=== PATIENT | female | born 1950 | race African-American/Black ===

== ENCOUNTER → 2016-08-06 | Outpatient (CLI) | payer MEDICARE, OTHER | LOC: WI 07:54 | PROVIDERS: ATTEND Physician Assistant | DX: Z12.31 Encounter for screening mammogram for malignant neoplasm of breast (principal); M81.0 Age-related osteoporosis without current pathological fracture | CPT/HCPCS: 77080; G0202; 77067 ==

== ENCOUNTER → 2017-02-21 | Outpatient (CLI) | payer MEDICARE, OTHER ==
--- NOTE | 2017-02-21 08:55 | WOMENS IMAGING REPORT ---
EXAM DESCRIPTION: U/S ABDOMEN LIMITED COMPLETED DATE/TIME: 02/21/2017 7:43 am REASON FOR STUDY: EPIGASTRIC PAIN;R10.13 R10.13 EPIGASTRIC PAIN COMPARISON: None. TECHNIQUE: Dynamic and static grayscale images acquired of the right upper quadrant and recorded on PACS. Additional selected color Doppler and spectral images recorded. LIMITATIONS: Study limited due to acoustical interference from fat or from air in the bowel. FINDINGS: PANCREAS: Parts of the pancreas poorly seen secondary to acoustical interference from fat or from air in the bowel. LIVER: Echotexture is coarse with increased echogenicity consistent with fatty infiltration. No mass es. LIVER VASCULATURE: Normal directional flow of the main portal vein and hepatic veins. GALLBLADDER: Contracted. No stones. Normal wall thickness. No pericholecystic fluid. ULTRASOUND-DETECTED REYNOSO'S SIGN: Negative. INTRAHEPATIC DUCTS AND COMMON DUCT: CBD and intrahepatic ducts normal caliber. No filling defects. INFERIOR VENA CAVA: Normal flow. AORTA: No aneurysm. RIGHT KIDNEY: Normal size. Normal echogenicity. No solid or suspicious masses. No hydronephrosis. No calcifications. PERITONEAL CAVITY AND RIGHT PLEURAL SPACE: No ascites or effusions. OTHER: No other significant finding. IMPRESSION: FATTY LIVER. PANCREAS PARTIALLY OBSCURED. OTHERWISE NORMAL RIGHT UPPER QUADRANT ULTRASOU ND. TECHNICAL DOCUMENTATION: JOB ID: [id number] [employer]- All Rights Reserved
== END ==
LOC: WI 07:28
PROVIDERS: ATTEND Physician Assistant
DX: R10.13 Epigastric pain (principal)
CPT/HCPCS: 76705

== ENCOUNTER → 2017-08-08 | Outpatient (CLI) | payer MEDICARE, OTHER ==
--- NOTE | 2017-08-08 09:31 | WOMENS IMAGING REPORT ---
EXAM DESCRIPTION: 3D SCREENING MAMMO BILAT COMPLETED DATE/TIME: 08/08/2017 8:55 am REASON FOR STUDY: ROUTINE SCREENING;Z12.31 Z12.31 ENCNTR SCREEN MAMMOGRAM FOR MALIGNANT NEOPLASM OF RHIANNA COMPARISON: Multiple since 2013 TECHNIQUE: Standard craniocaudal and mediolateral oblique views of each breast recorded using digita l acquisition and breast tomosynthesis. LIMITATIONS: None. FINDINGS: RIGHT BREAST MASSES: No suspicious masses. CALCIFICATIONS: No new or suspicious calcifications. ARCHITECTURAL DISTORTION: None. DEVELOPING DENSITY: None. ASYMMETRY: None noted. OTHER: No other significant findings. LEFT BREAST MASSES: Question subcentimeter nodule in the left breast upper outer quadrant, 6 to 7 cm from the nip ple. This requires further evaluation with cone compression views in the CC and MLO orientations, le ft breast 90 mediolateral view and possible ultrasound. CALCIFICATIONS: No new or suspicious calcifications. ARCHITECTURAL DISTORTION: None. DEVELOPING DENSITY: None. ASYMMETRY: None noted. OTHER: No other significant findings. Read with the assistance of CAD. .[facility] - R2 Cenova Version 1.3 .[facility] Imaging - R2 Cenova Version 1.3 .[facility] - R2 Cenova Version 2.4 .[facility] [place]2 Cenova Version 2.4 .[facility] - R2 Corporate Compliance Manager Version 9.2 IMPRESSION: No mammographic/tomosynthesis evidence for malignancy right breast Question subcentimeter nodule left breast upper outer quadrant 6 to 7 cm from the nipple. This requi res further evaluation with cone compression views, 90 mediolateral view and ultrasound BREAST DENSITY: b. There are scattered areas of fibroglandular density. BIRAD: 0 Incomplete: Needs Additional Imaging Evaluation and/or prior Mammograms for Comparison. RECOMMENDATION: RECOMMENDED FOLLOW-UP: Additional left breast diagnostic mammograms and ultrasound The patient will be contacted for additional imaging. COMMENT: The patient has been notified of the results by letter per SA requirements. Additional no tification policies are in place for contacting patient with suspicious or incomplete findings. Quality ID #225: The [employer] recommends an annual screening mammogram for women aged 40 years or over. This facility utilizes a reminder system to ensure that all patients receive reminder letters, and/or direct phone calls for appointments. This includes reminders for routine scr eening mammograms, diagnostic mammograms, or other Breast Imaging Interventions when appropriate. Th is patient will be placed in the appropriate reminder system. The [employer] (ACR) has developed recommendations for screening MRI of the breast s in certain patient populations, to be used in conjunction with mammography. Breast MRI surveillanc e may be appropriate for women with more than 20% lifetime risk of developing breast cancer as deter mined by genetic testing, significant family history of the disease, or history of mantle radiation f or Hodgkins Disease. ACR Practice Guidelines 2008. DBT Technology DBT is a type of tomographic mammography. With conventional mammography, overlapping breast tissue ma y make lesions difficult to detect, even with good compression. DBT uses an x-ray tube that rotates a round the breast, taking images at different angles. These images are then combined to create thin sl ices of the breast that the radiologist can view as a 3D reconstruction. The Flythe[employer] unit can perform full-field digital mammograms (2D imaging); or DBT (3D imaging); or both, in a combination mode that quickly performs both the mammogram and the tomosynthesis scan while the breast is still compressed. PQRS 6045F: Fluoroscopic imaging is not utilized for breast tomosynthesis. TECHNICAL DOCUMENTATION: FINDING NUMBER: (1) ASSESSMENT: (1) JOB ID: [id number] [employer] All Rights Reserved Reading location - IP/workstation name: [email or web address]
== END ==
LOC: WI 08:31
PROVIDERS: ATTEND Physician Assistant
DX: Z12.31 Encounter for screening mammogram for malignant neoplasm of breast (principal); R92.2 Inconclusive mammogram
CPT/HCPCS: 77063; 77067

== ENCOUNTER → 2017-08-20 | Outpatient (CLI) | payer MEDICARE, OTHER ==
--- NOTE | 2017-08-22 07:57 | WOMENS IMAGING REPORT ---
EXAM DESCRIPTION: LEFT DIAGNOSTIC MAMMO W/CAD COMPLETED DATE/TIME: 08/20/2017 9:02 am REASON FOR STUDY: UNSPECIFIED LUMP; N63.21 N63.21 UNSPECIFIED LUMP IN THE LEFT BREAST, UPPER OUTER QUAD COMPARISON: Multiple since 2013 TECHNIQUE: Cone compression craniocaudal and mediolateral oblique images of the breast recorded with digital acquisition. Left whole breast 90 mediolateral view LIMITATIONS: None. FINDINGS: BREAST: Left MASSES: No suspicious masses. CALCIFICATIONS: No new or suspicious calcifications. ARCHITECTURAL DISTORTION: None. DEVELOPING DENSITY: None. ASYMMETRY: None noted. OTHER: No other significant findings. Read with the assistance of CAD. .[facility] - R2 Cenova Version 1.3 .[facility] - R2 Cenova Version 1.3 .[facility] - R2 Cenova Version 2.4 .[facility] [place] - R2 Cenova Version 2.4 .[facility] - R2 Temp Recruiter Version 9.2 IMPRESSION: No worrisome findings on today's diagnostic mammography. No persistent nodule. BREAST DENSITY: b. There are scattered areas of fibroglandular density. BIRAD: 1 Negative. RECOMMENDATION: RECOMMENDED FOLLOW UP: Please continue yearly bilateral screening mammography in Aug. Please consider bilateral screening tomosynthesis SPECIFIC INTERVENTION/IMAGING/CONSULTATION RECOMMENDED:No additional intervention/ imaging/consultati on needed at this time. COMMUNICATION:Patient notified by letter COMMENT: The patient has been notified of the results by letter per MQSA requirements. Additional no tification policies are in place for contacting patient with suspicious or incomplete findings. Quality ID #225: The [employer] recommends an annual screening mammogram for women aged 40 years or over. This facility utilizes a reminder system to ensure that all patients receive reminder letters, and/or direct phone calls for appointments. This includes reminders for routine scr eening mammograms, diagnostic mammograms, or other Breast Imaging Interventions when appropriate. Th is patient will be placed in the appropriate reminder system. The [employer] (ACR) has developed recommendations for screening MRI of the breast s in certain patient populations, to be used in conjunction with mammography. Breast MRI surveillanc e may be appropriate for women with more than 20% lifetime risk of developing breast cancer as deter mined by genetic testing, significant family history of the disease, or history of mantle radiation f or Hodgkins Disease. ACR Practice Guidelines 2008. TECHNICAL DOCUMENTATION: FINDING NUMBER: (1) ASSESSMENT: (1) JOB ID: [id number] [employer]- All Rights Reserved Reading location - IP/workstation name: [email or web address]
== END ==
LOC: WI 08:31
PROVIDERS: ATTEND Physician Assistant
DX: N63.21 Unspecified lump in the left breast, upper outer quadrant (principal)

== ENCOUNTER → 2018-08-31 | Outpatient (CLI) | payer MEDICARE, OTHER ==
--- NOTE | 2018-08-31 12:11 | WOMENS IMAGING REPORT ---
EXAM DESCRIPTION: 3D SCREENING MAMMO BILAT COMPLETED DATE/TIME: 08/31/2018 7:28 am REASON FOR STUDY: Z12.31 ROUTINE 3D BILATERAL SCREENING Z12.31 ENCNTR SCREEN MAMMOGRAM FOR MALIGNAN T NEOPLASM OF RHIANNA COMPARISON: 08/06/2016 and 06/27/2015. EXAM PARAMETERS: Views: Standard craniocaudal and mediolateral oblique views of each breast recorded using digital acquisition and breast tomosynthesis. Read with the assistance of CAD. .[facility] - [employer] Supervisor Propellant Charge Loading Version 9.2 LIMITATIONS: None. FINDINGS: No suspicious masses, suspicious calcifications or architectural distortion. No areas of c oncern. IMPRESSION: NEGATIVE MAMMOGRAM. BIRADS 1. BREAST DENSITY: b. There are scattered areas of fibroglandular density. BIRAD: ASSESSMENT: 1 NEGATIVE RECOMMENDATION: ROUTINE SCREENING COMMENT: The patient has been notified of the results by letter per MQSA requirements. Additional no tification policies are in place for contacting patient with suspicious or incomplete findings. Quality ID #225: The [employer] recommends an annual screening mammogram for women aged 40 years or over. This facility utilizes a reminder system to ensure that all patients receive reminder letters, and/or direct phone calls for appointments. This includes reminders for routine scr eening mammograms, diagnostic mammograms, or other Breast Imaging Interventions when appropriate. Th is patient will be placed in the appropriate reminder system. TECHNICAL DOCUMENTATION: FINDING NUMBER: (1) ASSESSMENT: (1) JOB ID: [id number] [employer]- All Rights Reserved Reading location - IP/workstation name: [facility]
== END ==
LOC: WI 06:53
PROVIDERS: ATTEND Physician Assistant
DX: Z12.31 Encounter for screening mammogram for malignant neoplasm of breast (principal)
CPT/HCPCS: 77063; 77067

== ENCOUNTER → 2018-09-09 | Outpatient (CLI) | payer MEDICARE, OTHER ==
--- NOTE | 2018-09-09 14:46 | RADIOLOGY REPORT (SQ) ---
EXAM DESCRIPTION: HIP RIGHT AP/LATERAL COMPLETED DATE/TIME: 09/09/2018 12:01 pm REASON FOR STUDY: RT HIP PAIN M25.551 PAIN IN RIGHT HIP COMPARISON: CT abdomen pelvis 11/04/2013 KUB 10/26/2013 NUMBER OF VIEWS: Two views. TECHNIQUE: AP pelvis and additional frog-leg view of the right hip. LIMITATIONS: None. FINDINGS: MINERALIZATION: Normal. RIGHT HIP: No fracture or dislocation. No worrisome bone lesions. No significant right hip joint sp arlin narrowing or bony spurring LEFT HIP: No fracture or dislocation. No worrisome bone lesions. No significant left hip joint spac e narrowing or bony spurring PUBIS AND ISCHIUM: No fracture. PELVIS: No fracture. SACRUM: Mild bilateral SI joint sclerosis right greater than left LOWER LUMBAR SPINE: Lower lumbar facet arthropathy at L3-4, L4-5, L5-S1 SOFT TISSUES: Calcified uterine fibroid in the midline pelvis about 7 cm in diameter OTHER: No other significant finding. IMPRESSION: Bilateral SI joint sclerosis Lower lumbar facet arthropathy No significant right hip joint space narrowing. No right hip fracture TECHNICAL DOCUMENTATION: JOB ID: [id number]- All Rights Reserved Reading location - IP/workstation name: [email or web address]
== END ==
LOC: OD 11:46
PROVIDERS: ATTEND Family Medicine
DX: M25.551 Pain in right hip (principal); M12.88 Other specific arthropathies, not elsewhere classified, other specified site

== ENCOUNTER 2018-12-25 15:39 | Emergency (ER) | payer MEDICARE, OTHER ==
--- NOTE | 2018-12-25 16:50 | ER Document Report ---
ED Medical Screen (RME) - General Stated Complaint: FACIAL NUMBNESS, HEAD PAIN Time Seen by Provider: 12/25/18 16:38 Primary Care Provider: DMITRIY PERES PA [Primary Care Provider] - Follow up as needed Mode of Arrival: Ambulatory Information source: Patient Notes: 68-year-old female presents to ED for an MRI of her brain. She states that she went to her doctor and they ordered a CT of the head. She states that the results were read called to the primary care they called her and told her she needed to return to the ED for an MRI of the brain. I called radiology and spoke with Dr. Rayo who stated that I needed to do an MRI with and without contrast. Patient has a history of high blood pressure cholesterol and diabetes. She states she does not smoke drink or do any drugs. She states the only injury was a candidate hit her in the head about a week ago. I have greeted and performed a rapid initial assessment of this patient. A comprehensive ED assessment and evaluation of the patient, analysis of test results and completion of medical decision making process will be conducted by an additional ED providers. TRAVEL OUTSIDE OF THE [place] IN LAST 30 DAYS: No - Related Data Allergies/Adverse Reactions: iodine [Iodine] Allergy (Mild, Verified 12/25/18 16:39) lisinopril [Lisinopril] Allergy (Mild, Verified 12/25/18 16:39) Shellfish * [Shellfish] Allergy (Mild, Verified 12/25/18 16:39) Sulfa (Sulfonamide Antibiotics) Allergy (Mild, Verified 12/25/18 16:39) Past Medical History - Social History Chew tobacco use (# tins/day): No Frequency of alcohol use: None Drug Abuse: None - Past Medical History Cardiac Medical History: Reports: Hx Coronary Artery Disease, Hx Hypercholesterolemia, Hx Hypertension Denies: Hx Heart Attack Pulmonary Medical History: Reports: Hx Asthma Denies: Hx Bronchitis, Hx COPD, Hx Pneumonia Neurological Medical History: Denies: Hx Cerebrovascular Accident, Hx Seizures Endocrine Medical History: Reports: Hx Diabetes Mellitus Type 2 Musculoskeltal Medical History: Reports Hx Arthritis, Reports Hx Musculoskeletal Trauma Traumatic Medical History: Reports: Hx Fractures - 5th finger Past Surgical History: Reports: Hx Orthopedic Surgery - carpal tunnel, Hx Tubal Ligation - Immunizations Immunizations up to date: Yes Hx Diphtheria, Pertussis, Tetanus Vaccination: Yes Physical Exam - Vital signs Vitals: Temp Pulse Resp BP Pulse Ox 98.4 F 87 18 142/67 H 96 12/25/18 15:47 12/25/18 15:47 12/25/18 15:47 12/25/18 15:47 12/25/18 15:47 Course - Vital Signs Vital signs: Temp Pulse Resp BP Pulse Ox 98.4 F 87 18 142/67 H 96 12/25/18 15:47 12/25/18 15:47 12/25/18 15:47 12/25/18 15:47 12/25/18 15:47 Doctor's Discharge - Discharge Referrals: DMITRIY PERES PA [Primary Care Provider] - Follow up as needed
[2018-12-25 17:20] LABS: ABSOLUTE BASOPHILS # (AUTO) 0.1 10^3/uL (0.0-0.2); ABSOLUTE EOSINOPHILS # (AUTO) 0.2 10^3/uL (0.0-0.6); ABSOLUTE LYMPHOCYTES (AUTO) 2.9 10^3/uL (0.5-4.7); ABSOLUTE MONOCYTES (AUTO) 0.4 10^3/uL (0.1-1.4); BASOPHILS % (AUTO) 0.9 % (0-2); EOSINOPHILS % (AUTO) 2.4 % (0-6); HEMATOCRIT 42.9 % (36.0-47.0); HEMOGLOBIN 13.8 g/dL (12.0-15.5); LYMPHOCYTES % (AUTO) 37.9 % (13-45); MEAN CORPUSCULAR VOLUME 81 fl (80-97); MONOCYTES % (AUTO) 5.7 % (3-13); PLATELET COUNT 247 10^3/uL (150-450); RED BLOOD COUNT 5.29 10^6/uL (3.72-5.28); RED CELL DISTRIBUTION WIDTH 13.9 % (11.5-14.0); SEGMENTED NEUTROPHILS % (AUTO) 53.1 % (42-78); TOTAL CELLS COUNTED % (AUTO) 100 %; WHITE BLOOD COUNT 7.6 10^3/uL (4.0-10.5)
[2018-12-25 17:25] LABS: APPEARANCE,URINE CLOUDY; BILIRUBIN,URINE NEGATIVE (NEGATIVE); GLUCOSE, URINE >=500 mg/dL (NEGATIVE); KETONES,URINE NEGATIVE (NEGATIVE); LEUKOCYTE ESTERASE,URINE NEGATIVE (NEGATIVE); NITRITE,URINE NEGATIVE (NEGATIVE); PROTEIN,URINE NEGATIVE (NEGATIVE); URINE SPECIFIC GRAVITY 1.025; UROBILINOGEN,URINE NEGATIVE mg/dL (<2.0)
[2018-12-25 17:26] LABS: COLOR,URINE YELLOW
[2018-12-25 17:49] LABS: ALBUMIN 4.2 g/dL (3.5-5.0); ALKALINE PHOSPHATASE 94 U/L (38-126); ANION GAP 11 (5-19); ASPARTATE AMINO TRANSFERASE 24 U/L (14-36); BILIRUBIN,DIRECT 0.1 mg/dL (0.0-0.4); BILIRUBIN,TOTAL 0.3 mg/dL (0.2-1.3); BLOOD UREA NITROGEN 13 mg/dL (7-20); CALCIUM 10.2 mg/dL (8.4-10.2); CARBON DIOXIDE 29 mmol/L (22-30); CHLORIDE 100 mmol/L (98-107); GLUCOSE 110 mg/dL (75-110); POTASSIUM 4.3 mmol/L (3.6-5.0); TOTAL PROTEIN 7.2 g/dL (6.3-8.2)
--- NOTE | 2018-12-25 20:30 | ER Document Report ---
ED General - General Chief Complaint: Headache Stated Complaint: FACIAL NUMBNESS, HEAD PAIN Time Seen by Provider: 12/25/18 16:38 Primary Care Provider: DMITRIY PERES PA [Primary Care Provider] - Follow up as needed Mode of Arrival: Ambulatory TRAVEL OUTSIDE OF THE [place] IN LAST 30 DAYS: No - HPI Notes: This is a 68-year-old female who presents today with a complaint of a head injury that occurred a week ago. Patient states that she was trying to take out a crystal candy bowl from her top cabinet when the lid fell and hit her on the head. She denies loss of consciousness. Patient states has had pain on the right frontal/temporal area that was hit ever since then intermittently. She also describes intermittent episodes of dizziness. She states that the pain did not get away so she decided to come and get it checked out today. She denies any focal neurologic complaints. She describes her symptoms as mild. She does not want pain meds at this time. She has no other complaints. - Related Data Allergies/Adverse Reactions: iodine [Iodine] Allergy (Mild, Verified 12/25/18 16:39) lisinopril [Lisinopril] Allergy (Mild, Verified 12/25/18 16:39) Shellfish * [Shellfish] Allergy (Mild, Verified 12/25/18 16:39) Sulfa (Sulfonamide Antibiotics) Allergy (Mild, Verified 12/25/18 16:39) Past Medical History - General Information source: Patient - Social History Smoking Status: Unknown if Ever Smoked Chew tobacco use (# tins/day): No Frequency of alcohol use: None Drug Abuse: None Family History: Arthritis, CAD, CVA, DM, Hyperlipidemia, Hypertension, Malignancy, Thyroid Disfunction Patient has suicidal ideation: No Patient has homicidal ideation: No - Past Medical History Cardiac Medical History: Reports: Hx Coronary Artery Disease, Hx Hypercholesterolemia, Hx Hypertension Denies: Hx Heart Attack Pulmonary Medical History: Reports: Hx Asthma Denies: Hx Bronchitis, Hx COPD, Hx Pneumonia Neurological Medical History: Denies: Hx Cerebrovascular Accident, Hx Seizures Endocrine Medical History: Reports: Hx Diabetes Mellitus Type 2 Musculoskeletal Medical History: Reports Hx Arthritis, Reports Hx Musculoskeletal Trauma Traumatic Medical History: Reports: Hx Fractures - 5th finger Past Surgical History: Reports: Hx Orthopedic Surgery - carpal tunnel, Hx Tubal Ligation - Immunizations Immunizations up to date: Yes Hx Diphtheria, Pertussis, Tetanus Vaccination: Yes Hx Pneumococcal Vaccination: 12/22/18 Review of Systems - Review of Systems Constitutional: denies: Fever, Malaise EENT: denies: Blurred vision Cardiovascular: Dizziness. denies: Chest pain, Palpitations, Orthopnea, Syncope Gastrointestinal: denies: Abdominal pain, Diarrhea, Nausea Neurological/Psychological: Headaches. denies: Weakness, Numbness -: Yes All other systems reviewed and negative Physical Exam - Vital signs Vitals: Temp Pulse Resp BP Pulse Ox 98.4 F 87 18 142/67 H 96 12/25/18 15:47 12/25/18 15:47 12/25/18 15:47 12/25/18 15:47 12/25/18 15:47 - General General appearance: Appears well, Alert - HEENT Head: Normocephalic - Ther eis tenderness o fthe irght fronto tempral scalp. NO deformity. Neck: Other - No midline tenderness or stepoffs. - Respiratory Respiratory status: No respiratory distress Chest status: Nontender Breath sounds: Normal Chest palpation: Normal - Cardiovascular Rhythm: Regular Heart sounds: Normal auscultation Murmur: No - Abdominal Inspection: Normal Distension: No distension Bowel sounds: Normal Tenderness: Nontender Organomegaly: No organomegaly - Neurological Neuro grossly intact: Yes Cognition: Normal Orientation: AAOx4 - Ther eis no motor, sensory or cerebellar deficits. Non- focalneurologic exam. [place] Coma Scale Eye Opening: Spontaneous [place] Coma Scale Verbal: Oriented [place] Coma Scale Motor: Obeys Commands Sujata Coma Scale Total: 15 Speech: Normal Motor strength normal: LUE, RUE, LLE, RLE Sensory: Normal Course - Re-evaluation Re-evalutation: 12/25/18 20:29 Clinical picture is suggestive of head injury - post concussive syndrome. will get Ct to r/o bleed. 12/25/18 21:20 Patient reevaluated. Patient feels fine. Labs and imaging reviewed and discussed. No acute injury. She is stable for discharge. - Vital Signs Vital signs: Temp Pulse Resp BP Pulse Ox 98.6 F 73 17 143/72 H 97 12/25/18 20:14 12/25/18 20:14 12/25/18 20:14 12/25/18 20:14 12/25/18 20:14 - Laboratory Result Diagrams: 12/25/18 17:05 12/25/18 17:05 Laboratory results interpreted by me: 12/25/18 12/25/18 17:05 17:05 RBC 5.29 H [facility] 26.0 L Urine Glucose (UA) >=500 H Urine Ascorbic Acid 40 H - Diagnostic Test Radiology reviewed: Reports reviewed Discharge - Discharge Clinical Impression: Post concussion syndrome Head injury Qualifiers: Encounter type: initial encounter Qualified Code(s): S09.90XA - Unspecified injury of head, initial encounter Condition: Good Disposition: HOME, SELF-CARE Instructions: Head Injury Precautions ([facility]), Post-Concussion Syndrome ([facility]) Prescriptions: Tramadol HCl [Ultram 50 mg Tablet] 50 mg PO Q6HP PRN #20 tablet PRN Reason: Pain Scale Of 3 Referrals: DMITRIY PERES PA [Primary Care Provider] - Follow up as needed
--- NOTE | 2018-12-25 20:48 | RADIOLOGY REPORT (SQ) ---
MR BRAIN WITHOUT THEN WITH IV CONTRAST EXAM DATE: 12/25/2018 4:47 PM CDT HISTORY: Altered mental status. COMPARISON: CT scan from earlier the same day. TECHNIQUE: Multisequence, multiplanar MR imaging of the brain was performed without and with the administration of intravenous gadolinium. FINDINGS: There is an old infarct in the right posterior parietal region. There is no acute infarction, intracranial hemorrhage, extra-axial fluid collection, or mass. The brainstem, posterior fossa, and cervicomedullary junction are preserved. The intravascular flow voids are preserved. The orbits are unremarkable. No abnormality of the skull base or calvarium is seen. The paranasal sinuses are clear. IMPRESSION: 1. No acute infarction. 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
[2018-12-25 21:34] VITALS: BP 121/79
== END 2018-12-25 21:34 | disposition home or self-care (01) ==
LOC: ER 15:39
DX: S09.90XA Unspecified injury of head, initial encounter (principal); F07.81 Postconcussional syndrome; R51 Headache; R20.0 Anesthesia of skin; R42 Dizziness and giddiness; W22.8XXA Striking against or struck by other objects, initial encounter; I25.10 Atherosclerotic heart disease of native coronary artery without angina pectoris; I10 Essential (primary) hypertension; J45.909 Unspecified asthma, uncomplicated; E11.9 Type 2 diabetes mellitus without complications
CPT/HCPCS: 99284; 36415; 85025; 80053; 81001; 70553; A9576; 70450

== ENCOUNTER → 2018-12-25 | Outpatient (CLI) | payer MEDICARE, OTHER ==
--- NOTE | 2018-12-25 14:07 | RADIOLOGY REPORT (SQ) ---
EXAM DESCRIPTION: CT HEAD WITHOUT COMPLETED DATE/TIME: 12/25/2018 1:40 pm REASON FOR STUDY: POST-TRAUMATIC HEADACHE (G44.309) G44.309 POST-TRAUMATIC HEADACHE, UNSPECIFIED, N OT INTRACTABL COMPARISON: None. TECHNIQUE: Axial images acquired through the brain without intravenous contrast. Images reviewed wi th bone, brain and subdural windows. Additional sagittal and coronal reconstructions were generated. Images stored on PACS. All CT scanners at this facility use dose modulation, iterative reconstruction, and/or weight based d osing when appropriate to reduce radiation dose to as low as reasonably achievable (ALARA). [facility]: Dose Right [facility]: CareDose [facility]: Dose Right [facility]: Teradose 4D [facility]: Smart Xeround RADIATION DOSE: CT Rad equipment meets quality standard of care and radiation dose reduction techniq ues were employed. CTDIvol: 48.6 mGy. DLP: 930 mGy-cm. mGy. LIMITATIONS: None. FINDINGS: VENTRICLES: Normal size and contour. CEREBRUM: There is subtle cortical based hypodensity of the right parietal lobe (series 2, image 25). CEREBELLUM: No masses. No hemorrhage. No alteration of density. No evidence for acute infarction. EXTRAAXIAL SPACES: No fluid collections. No masses. ORBITS AND GLOBE: No intra- or extraconal masses. Normal contour of globe without masses. CALVARIUM: No fracture. PARANASAL SINUSES: No fluid or mucosal thickening. SOFT TISSUES: No mass or hematoma. OTHER: No other significant finding. IMPRESSION: No definite acute intracranial pathology. There is a subtle cortical based hypodensity of the right parietal lobe, appearance most suggestive of a prior infarction although age indetermina te. MRI may be used to more sensitively evaluate for acute diffusion restricting infarction if suspe cted. Acute sequelae of trauma not favored and there is no evidence of intracranial hemorrhage. EVIDENCE OF ACUTE STROKE: Equivocal COMMENT: Quality ID # [id number]: Final reports with documentation of one or more dose reduction techniques (e.g., Automated exposure control, adjustment of the mA and/or kV according to patient size, use of iterative reconstruction technique) TECHNICAL DOCUMENTATION: JOB ID: [id number] [employer]- All Rights Reserved Reading location - IP/workstation name: [email or web address]
== END ==
LOC: RAD 12:53
PROVIDERS: ATTEND Physician Assistant
DX: G44.309 Post-traumatic headache, unspecified, not intractable (principal)
CPT/HCPCS: 70450

== ENCOUNTER → 2019-05-07 | Outpatient (CLI) | payer MEDICARE, OTHER ==
--- NOTE | 2019-05-07 14:55 | RADIOLOGY REPORT (SQ) ---
EXAM DESCRIPTION: SHOULDER RIGHT 2 OR MORE VIEWS COMPLETED DATE/TIME: 05/07/2019 12:23 pm REASON FOR STUDY: RT ANTERIOR SHOULDER PAIN COMPARISON: None. NUMBER OF VIEWS: Three views right shoulder. LIMITATIONS: None. FINDINGS: Osteopenic. AC DJD. No fracture or bone lesion or lung lesion. OTHER: No other significant finding. IMPRESSION: As above. No acute or suspicious findings. TECHNICAL DOCUMENTATION: JOB ID: [id number] Reading location - IP/workstation name: [email or web address]
== END ==
LOC: OD 11:56
PROVIDERS: ATTEND Family Medicine
DX: M25.511 Pain in right shoulder (principal)

== ENCOUNTER → 2019-05-25 | Outpatient (CLI) | payer MEDICARE, OTHER ==
--- NOTE | 2019-05-25 09:40 | WOMENS IMAGING REPORT ---
EXAM DESCRIPTION: BONE DENSITY HIP/SPINE COMPLETED DATE/TIME: 05/25/2019 8:38 am REASON FOR STUDY: Z78.0 ASYMPTOMATIC MENOPAUSAL STATE Z78.0 ASYMPTOMATIC MENOPAUSAL STATE COMPARISON: 08/06/2016. TECHNIQUE: Dual-Energy X-ray Absorptiometry (DEXA) of the AP Spine and Hip. LIMITATIONS: None. FINDINGS: LUMBAR SPINE: The bone mineral density (BMD) measured from L1-L4 in the AP projection correlates with a T-score of -1.2, which is osteopenia as defined by the World Health Organization. BMD Change vs Baseline: -5.1%. HIP: The bone mineral density (BMD) measured in the left hip correlates with a T-score of -2.5, which is o steoporosis as defined by the World Health Organization. BMD Change vs Baseline: -2.2%. 10 year Fracture Risk Assessment: Major Osteoporotic Fracture: Not available. Hip Fracture: Not available. IMPRESSION: 1. LUMBAR SPINE WHO CLASSIFICATION: OSTEOPENIA. 2. HIP WHO CLASSIFICATION: OSTEOPOROSIS. OVERALL ASSESSMENT: WHO CLASSIFICATION: OSTEOPOROSIS. COMMENT: The World Health Organization defines low BMD as follows: T-score: Normal: Greater than -1.0 Osteopenia: Between -1.0 and -2.5 Osteoporosis: Less than -2.5 without fractures Established osteoporosis: Less than -2.5 with fractures In general, you may wish to consider: Diagnosis Treatment Follow-up DEXA Normal BMD Prevention 2-3 years Osteopenia Prevention/Therapy 1-2 years Osteoporosis Therapy Yearly TECHNICAL DOCUMENTATION: JOB ID: [id number] 2010 [email or web address]- All Rights Reserved Reading location - IP/workstation name: [email or web address]
== END ==
LOC: WI 08:09
PROVIDERS: ATTEND Physician Assistant
DX: M81.0 Age-related osteoporosis without current pathological fracture (principal); Z78.0 Asymptomatic menopausal state
CPT/HCPCS: 77080

== ENCOUNTER → 2019-09-15 | Outpatient (CLI) | payer MEDICARE, OTHER ==
--- NOTE | 2019-09-15 13:22 | WOMENS IMAGING REPORT ---
EXAM DESCRIPTION: 3D SCREENING MAMMO BILAT IMAGES COMPLETED DATE/TIME: 09/15/2019 10:36 am REASON FOR STUDY: Z12.39 ENCOUNTER FOR OTHER SCREENING FOR MALIGNANT NEOPLASM OF BREAST Z12.31 ENCN TR SCREEN MAMMOGRAM FOR MALIGNANT NEOPLASM OF RHIANNA COMPARISON: 08/31/2018, 08/08/2017, 08/06/2016, 06/20/2014 EXAM PARAMETERS: Views: Standard craniocaudal and mediolateral oblique views of each breast recorded using digital acquisition and breast tomosynthesis. Read with the assistance of CAD. .[facility] - [employer] Operator Version 9.2 LIMITATIONS: None. FINDINGS: No suspicious masses, suspicious calcifications or architectural distortion. No areas of c oncern. IMPRESSION: NEGATIVE MAMMOGRAM. BIRADS 1. BREAST DENSITY: b. There are scattered areas of fibroglandular density. BIRAD: ASSESSMENT: 1 NEGATIVE RECOMMENDATION: ROUTINE SCREENING COMMENT: The patient has been notified of the results by letter per MQSA requirements. Additional no tification policies are in place for contacting patient with suspicious or incomplete findings. Quality ID #225: The [employer] recommends an annual screening mammogram for women aged 40 years or over. This facility utilizes a reminder system to ensure that all patients receive reminder letters, and/or direct phone calls for appointments. This includes reminders for routine scr eening mammograms, diagnostic mammograms, or other Breast Imaging Interventions when appropriate. Th is patient will be placed in the appropriate reminder system. TECHNICAL DOCUMENTATION: FINDING NUMBER: (1) ASSESSMENT: (1) JOB ID: [id number] 2010 [employer]- All Rights Reserved Reading location - IP/workstation name: [email or web address]
== END ==
LOC: WI 10:55
PROVIDERS: ATTEND Physician Assistant
DX: Z12.31 Encounter for screening mammogram for malignant neoplasm of breast (principal)
CPT/HCPCS: 77063; 77067

== ENCOUNTER → 2020-02-03 | Outpatient (CLI) | payer MEDICARE, OTHER ==
--- NOTE | 2020-02-03 13:28 | RADIOLOGY REPORT (SQ) ---
EXAM DESCRIPTION: ELBOW LEFT >2 VIEWS IMAGES COMPLETED DATE/TIME: 02/03/2020 1:01 pm REASON FOR STUDY: LEFT WRIST AND ELBOW PAIN M25.532 PAIN IN LEFT WRIST M25.522 PAIN IN LEFT ELBOW COMPARISON: None. NUMBER OF VIEWS: Four views. TECHNIQUE: AP, lateral, and both oblique radiographic images acquired of the left elbow. LIMITATIONS: None. FINDINGS: MINERALIZATION: Normal. BONES: No acute fracture or dislocation. No worrisome bone lesions. JOINT: No effusion. SOFT TISSUES: No soft tissue swelling. No foreign body. OTHER: No other significant finding. IMPRESSION: NEGATIVE STUDY OF THE LEFT ELBOW. NO RADIOGRAPHIC EVIDENCE OF ACUTE INJURY. TECHNICAL DOCUMENTATION: JOB ID: [id number] 2010 [employer]- All Rights Reserved Reading location - IP/workstation name: [email or web address]
--- NOTE | 2020-02-03 13:29 | RADIOLOGY REPORT (SQ) ---
EXAM DESCRIPTION: WRIST LEFT 3 VIEWS IMAGES COMPLETED DATE/TIME: 02/03/2020 1:01 pm REASON FOR STUDY: LEFT WRIST AND ELBOW PAIN M25.532 PAIN IN LEFT WRIST M25.522 PAIN IN LEFT ELBOW COMPARISON: None. NUMBER OF VIEWS: Three views. TECHNIQUE: AP, lateral, and oblique radiographic images acquired of the left wrist. LIMITATIONS: None. FINDINGS: MINERALIZATION: Normal. BONES: No acute fracture or dislocation. No worrisome bone lesions. Normal alignment. No significant osteophytes. JOINTS: No erosions. No henrry-articular osteopenia. No chondrocalcinosis. SOFT TISSUES: No swelling. No calcifications. OTHER: No other significant finding. IMPRESSION: NEGATIVE STUDY OF THE LEFT WRIST. NO EXPLANATION FOR PAIN. TECHNICAL DOCUMENTATION: JOB ID: [id number] 2010 [employer]- All Rights Reserved Reading location - IP/workstation name: [email or web address]
--- OUTSIDE RECORDS SUMMARY | 2020-02-04 15:28 | XMS REPORT ---
:1950 [facility] [place] [address] [place] [address] Care Team Providers Name Role Phone Sumi Cornell Primary Care Physician Unavailable Allergies, Adverse Reactions, Alerts This patient has no known allergies or adverse reactions. Medications This patient has no known medications. Problems This patient has no known problems. Procedures This patient has no known procedures. Results This patient has no known results. Social History This patient has no known social history. Vital Signs This patient has no known vital signs.
== END ==
LOC: OD 12:44
PROVIDERS: ATTEND Physician Assistant
DX: M25.532 Pain in left wrist (principal); M25.522 Pain in left elbow